=== PATIENT | female | born 1960 | race Caucasian/White ===

== ENCOUNTER 2018-11-14 09:41 | Emergency (ER) | payer BC, OTHER ==
[2018-11-14] MEDS ORDERED: methylPREDNISolone Sod Succ/PF 125 MG/2 ML VIAL ONE (10:53)
[2018-11-14] MEDS ORDERED: Famotidine/PF 20 mg/2ml Vial ONE (11:06)
[2018-11-14] MEDS ORDERED: Famotidine/PF 20 mg/2ml Vial IVPB SCH (11:15)
== END 2018-11-14 14:58 | disposition home or self-care (01) ==
LOC: ERS 09:41
DX: T78.2XXA Anaphylactic shock, unspecified, initial encounter (principal); E78.5 Hyperlipidemia, unspecified; E78.00 Pure hypercholesterolemia, unspecified; Z79.899 Other long term (current) drug therapy
CPT/HCPCS: 93005; 96361; 96374; 96375; J2930; S0028

== ENCOUNTER 2020-07-02 17:05 | Emergency (ER) | payer OTHER, BC ==
[~2020-07-02 17:05] MED LIST: Iopamidol-370 76% 500 ML 1 ML ONE
[2020-07-02] MEDS ORDERED: Fentanyl 100 MCG/2 ML VIAL ONE (17:11)
[2020-07-02 17:53] LABS: #Eosinphils 0.1 thou/uL (0.0-0.7); #Lymphocytes 3.1 thou/uL (1.20-3.40); #Monocytes 0.7 thou/uL (0.11-0.59); #Neutrophils 4.8 thou/uL (1.40-6.50); %Basophils 0.3 % (0.0-1.0); %Eosinophils 0.9 % (0.0-10.0); %Lymphocytes 35.2 % (21.0-51.0); %Monocytes 8.5 % (0.0-10.0); Hemoglobin 12.5 g/dL (12.0-16.0); Mean Corpuscular HGB CONC 33.5 g/dL (32.0-36.0); Mean Corpuscular Hemoglobin 30.7 pg (27.0-31.0); Mean Corpuscular Volume 91.8 fL (78.0-98.0); Platelet Count 271 thou/uL (130-400); RBC Distribution Width 12.3 % (11.5-14.5); Red Blood Cell (RBC) Count 4.07 mill/uL (4.20-5.40); White Blood Cell (WBC) Count 8.7 thou/uL (4.8-10.8)
[2020-07-02 18:26] LABS: ALT (SGPT) 19 U/L (8-55); AST (SGOT) 21 U/L (5-34); Albumin 4.1 g/dL (3.5-5.0); Alkaline Phosphatase 122 U/L (40-110); Anion Gap 14 mmol/L (10-20); BUN (Urea Nitrogen) 12 mg/dL (9.8-20.1); Bilirubin, Total 0.2 mg/dL (0.2-1.2); Calc. Creatinine Clearance 0 mL/min (70-130); Calcium 8.7 mg/dL (7.8-10.44); Carbon Dioxide 20 mmol/L (22-29); Chloride 107 mmol/L (98-107); Globulin 3.2 g/dL (2.4-3.5); Glucose 136 mg/dL (70-105); Lipase 37 U/L (8-78); Potassium 3.7 mmol/L (3.5-5.1); Protein, Total 7.3 g/dL (6.0-8.3); Sodium 137 mmol/L (136-145)
[2020-07-02] MEDS ORDERED: Diazepam 5 MG TAB ONE (18:38)
[2020-07-02] MEDS ORDERED: Ketorolac Tromethamine 30 MG/ML VIAL ONE ×2 (18:38→20:58)
[2020-07-02] MEDS ORDERED: Morphine 4 MG/ML VIAL ONE ×2 (20:21→21:41)
[2020-07-02] MEDS ORDERED: Acetaminophen 500 MG TAB ONE (20:58)
[2020-07-02 21:38] LABS: Troponin I Less than 0.010 ng/mL (< 0.028)
[2020-07-02] MEDS ORDERED: Cyclobenzaprine 10 MG TAB ONE (21:41)
== END 2020-07-02 22:40 | disposition home or self-care (01) ==
LOC: ERS 17:05
DX: S20.314A Abrasion of middle front wall of thorax, initial encounter (principal); S60.512A Abrasion of left hand, initial encounter; E78.00 Pure hypercholesterolemia, unspecified; V89.2XXA Person injured in unspecified motor-vehicle accident, traffic, initial encounter
CPT/HCPCS: 70450; 71045; 71260; 72125; 72170; 74177; 80053; 82550; 83605; 83690; 84484; 85025; 86850; 86900; 86901; 93005; 96374; 96375; 96376; J1885; J2270; J3010; Q9967